=== PATIENT | male | born 1960 | race Two or more races ===

== ENCOUNTER 2023-02-10 15:34 | Emergency (ER) | payer OTHER ==
[~2023-02-10] VITALS: Ht 177.8 cm; Wt 82.7 kg
[2023-02-10] MEDS ORDERED: MethylPREDNISolone SOD SUCC 125 MG/2 ML VIAL IVP ONE (16:00)
[2023-02-10] MEDS ORDERED: FAMOTIDINE 10 MG/ML 2 ML VIAL IVP ONE (16:00)
[2023-02-10] MEDS ORDERED: ONDANSETRON HCL 4 MG/2 ML VIAL IVP ONE (16:00)
[2023-02-10] MEDS ORDERED: SODIUM CHLORIDE 0.9% 1,000 ML IV ONE ×2 (16:00→16:45)
[2023-02-10 16:28] LABS: BASOPHILS % (AUTO) 0.3 % (0.0-2.0); EOSINOPHILS % (AUTO) 5.2 % (1.0-6.0); HEMATOCRIT 31.6 % (41-53); HEMOGLOBIN 10.6 g/dL (13.5-17.5); LYMPHOCYTES # (AUTO) 1.5 K/uL (1.0-4.8); MEAN CORPUSCULAR HEMOGLOBIN 28.1 pg (26.0-34.0); MEAN CORPUSCULAR HGB CONC 33.6 G/dL (31.0-37.0); MEAN CORPUSCULAR VOLUME 84 fL (80-100); MONOCYTES # (AUTO) 0.8 K/uL (0.1-1.0); MONOCYTES % (AUTO) 10.4 % (2.0-9.0); NEUTROPHILS # (AUTO) 5.3 K/uL (1.8-7.7); NEUTROPHILS % (AUTO) 65.1 % (40.0-70.0); PLATELET COUNT (AUTO) 311 K/uL (150-450); RED BLOOD CELL COUNT(AUTO) 3.78 MIL/uL (4.50-5.90); RED CELL DISTRIBUTION WIDTH 14.7 % (11.5-14.5)
[2023-02-10 16:39] LABS: CALCIUM, TOTAL 7.9 mg/dL (8.8-10.5); CREATININE 1.52 mg/dL (0.60-1.30)
[2023-02-10] MEDS ORDERED: EPINEPHrine 1:1,000 [1 MG/ML] VIAL SQ ONE (16:45)
[2023-02-10] MEDS ORDERED: PRED-554 PO (20:09)
[2023-02-10] MEDS ORDERED: EPIN0.3P3 IM (20:09)
[2023-02-10] MEDS ORDERED: DIPH25CA85 PO (20:09)
[2023-02-10 20:30] VITALS: BP 116/81
== END 2023-02-10 21:41 | disposition home or self-care (01) ==
LOC: EMS 15:36
DX: T78.2XXA Anaphylactic shock, unspecified, initial encounter (principal); Z87.891 Personal history of nicotine dependence; Z98.890 Other specified postprocedural states; Z88.8 Allergy status to other drugs, medicaments and biological substances
CPT/HCPCS: 99291; 96374; 96361; 96375; 80048; 85025; 36415; 93005; 96372; J0171; J3490; J2930; J2405; J7030